=== PATIENT | male | born 1995 | race Two or more races ===

== ENCOUNTER 2018-06-18 10:07 | Emergency (ER) | payer OTHER ==
[~2018-06-18] VITALS: Ht 180.3 cm; Wt 57.2 kg
[2018-06-18 10:16] VITALS: BP 130/96; Ht 180.3 cm; Wt 57.2 kg
== END 2018-06-18 12:11 | disposition home or self-care (01) ==
LOC: ED 10:07
DX: M54.5 Low back pain (principal); M79.652 Pain in left thigh; I10 Essential (primary) hypertension; V48.6XXA Car passenger injured in noncollision transport accident in traffic accident, initial encounter; Y93.89 Activity, other specified; Y92.411 Interstate highway as the place of occurrence of the external cause; Y99.8 Other external cause status